=== PATIENT | female | born 1940 | race African-American/Black ===

== ENCOUNTER 2020-12-12 00:28 | Emergency (ER) | payer OTHER ==
[~2020-12-12] VITALS: Ht 162.6 cm; Wt 70.0 kg
[2020-12-12 02:06] LABS: BASOPHILS % 0.5 % (0.0-2.0); EOSINOPHILS % 0.2 % (0.0-5.0); HEMATOCRIT. 42.3 % (36.0-48.0); HEMOGLOBIN. 13.9 g/dL (12.0-16.0); LYMPHOCYTES % 9.3 % (20.0-50.0); MEAN CORPUSCULAR HEMOGLOBIN 28.7 pg (28.0-32.0); MEAN CORPUSCULAR VOLUME 87.3 fL (81.0-99.0); MEAN PLATELET VOLUME 8.7 fl (7.4-10.4); MONOCYTES % 10.5 % (2.0-8.0); NEUTROPHILS % 79.5 % (40.0-76.0); PLATELET 346 x1000/uL (130-400); RED BLOOD CELL COUNT 4.84 mill/uL (4.2-5.4); RED CELL DISTRIBUTION WIDTH 14.9 % (11.6-14.6)
[2020-12-12 02:08] LABS: CHLORIDE 109 mEq/L (98-107)
[2020-12-12 02:11] LABS: PROTHROMBIN TIME 10.8 sec (9.6-11.0)
[2020-12-12 02:14] LABS: ETHANOL BLOOD < 10 mg/dL
[2020-12-12 02:18] LABS: CREATINE KINASE 479 IU/L (26-192)
[2020-12-12 03:24] LABS: CLARITY URINE TURBID (CLEAR); COLOR URINE ORANGE (YELLOW); KETONES URINE TRACE (NEGATIVE); LEUKOCYTE ESTERASE URINE 2+ (NEGATIVE); NITRITE URINE POSITIVE (NEGATIVE); OCCULT BLOOD URINE NEGATIVE (NEGATIVE); PROTEIN URINE TRACE (NEGATIVE); SPECIFIC GRAVITY URINE 1.024 (1.005-1.030)
[2020-12-12 03:41] LABS: *AMPHETAMINES SCREEN URINE NEGATIVE (NEGATIVE); *BARBITURATES SCREEN URINE NEGATIVE (NEGATIVE)
[2020-12-12 03:42] LABS: *BENZODIAZEPINES SCREEN URINE NEGATIVE (NEGATIVE); *COCAINE SCREEN URINE NEGATIVE (NEGATIVE); CANNABINOID URINE SCREEN NEGATIVE (NEGATIVE); METHADONE URINE SCREEN NEGATIVE (NEGATIVE); PHENCYCLIDINE URINE SCREEN NEGATIVE (NEGATIVE)
[2020-12-12 03:44] LABS: OPIATES URINE SCREEN NEGATIVE (NEGATIVE)
[2020-12-12] MEDS ORDERED: CEFTRIAXONE 1 G PREMIX 50 ML IV NR (04:30)
[2020-12-12 06:10] VITALS: BP 105/58
== END 2020-12-12 06:25 | disposition short-term general hospital (02) ==
LOC: ER 00:28 → EDBD 00:28 → ER 06:25 → CANBEDREQ 06:29
DX: N39.0 Urinary tract infection, site not specified (principal); G93.41 Metabolic encephalopathy; R41.0 Disorientation, unspecified; E87.70 Fluid overload, unspecified; I10 Essential (primary) hypertension; R77.8 Other specified abnormalities of plasma proteins; F03.90 Unspecified dementia, unspecified severity, without behavioral disturbance, psychotic disturbance, mood disturbance, and anxiety
CPT/HCPCS: 36415; 70450; 71045; 80053; 80305; 80320; 81003; 82550; 82728; 83605; 83690; 83880; 84145; 84484; 85025; 85610; 86140; 86850; 86900; 86901; 87040; 87086; 93005; 96365; 99285; J0696; G0480